=== PATIENT | male | born 1950 | race Caucasian/White ===

== ENCOUNTER 2025-06-17 08:14 | Day surgery (SDC) | payer MEDICARE, BC ==
[2025-06-17] VITALS (10 sets, daily range): BP systolic 135–155; BP diastolic 60–94; PULSE 58–71; RESP 16; TEMP 97.8; O2SAT 97–99
[~2025-06-17] VITALS: Ht 177.8 cm; Wt 81.1 kg
--- NOTE | 2025-06-17 08:54 | ELECTROCARDIOGRAPH REPORT ---
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 Julio Benito Measurements Intervals [place] Rate: 75 P: 48 NE: 150 QRS: 41 QRSD: 81 T: 56 QT: 376 QTc: 420 Interpretive Statements Sinus rhythm Minimal ST elevation, anterior and inferioir leads Electronically Signed On 06-17-2025 12:41:[address] Julio Benito Please click the below link to view image of tracing.
[2025-06-17] MEDS ORDERED: ASPI-1265 PO (09:01)
[2025-06-17] MEDS ORDERED: RAMI2.5C56 PO (09:01)
[2025-06-17] MEDS ORDERED: DAPA10TA PO (09:01)
[2025-06-17] MEDS ORDERED: METF-900 PO (09:01)
[2025-06-17] MEDS ORDERED: ROSU10TA98 PO (09:01)
[2025-06-17] MEDS ORDERED: PIOG30TA71 PO (09:01)
[2025-06-17] MEDS ORDERED: LIDOcaine 1% (10mg/ml) 2ml vial ONE (09:14)
[2025-06-17] MEDS ORDERED: verapamil 2.5 mg/ml inj IV ONE (09:14)
[2025-06-17] MEDS ORDERED: midazolam 1 mg/ML 2ml injection ONE ×4 (09:15→10:58)
[2025-06-17] MEDS ORDERED: iohexol 350 MG/ML 50ML vial IV ONE ×2 (09:15→11:11)
[2025-06-17] MEDS ORDERED: heparin 1,000unit/ml 10ml vial 0 ML ONE (09:15)
[2025-06-17] MEDS ORDERED: fentaNYL/PF 50MCG/1 ML 2ML syringe ONE (09:15)
[2025-06-17] MEDS ORDERED: nitroGLYCERIN 500mcg/5mL D5W 5 ML IV ONE ×3 (09:16→11:28)
[2025-06-17 09:18] LABS: MEAN PLATELET VOLUME 8.5 FL (7.4-10.4); RED CELL DISTRIBUTION WIDTH 15.1 % (11.5-14.5)
[2025-06-17 09:25] LABS: CREATININE 1.24 MG/DL (0.60-1.10); TOTAL CARBON DIOXIDE 25.7 MMOL/L (24-32); eCRCL 52 ML/MIN; eGFR 57 ML/MIN
[2025-06-17 09:28] LABS: INR 1.0 INR
[2025-06-17] MEDS: sodium bicarbonate 1meq/ml syr 150 ML in dextrose 5%-water 1,000 ML IV ONE (10:01)
[2025-06-17] MEDS ORDERED: heparin 1,000unit/ml 10ml vial 10 ML ONE (10:40)
[2025-06-17] MEDS ORDERED: phenylephrine 10mg/ml inj. ONE (11:21)
[2025-06-17] MEDS ORDERED: ondansetron/PF 4mg/2ml inj IV PRN (12:15)
[2025-06-17] MEDS ORDERED: HYDROcodone/acetaminophen 5mg/325mg tablet PO PRN (12:15)
[2025-06-17] MEDS ORDERED: HYDROcodone/acetaminophen 10/325mg tab PO PRN (12:15)
--- NOTE | 2025-06-17 12:30 | CARDIOLOGY REPORT ---
DATE OF SERVICE: 06/17/2025 DICTATING PHYSICIAN: NEYMAR PILLAI DO CARDIAC CATHETERIZATION REPORT REFERRING PHYSICIAN: Kassandra Covarrubias MD. CLINICAL HISTORY: This 75-year-old man has been experiencing chest pain compatible with angina pectoris. He also has mild to moderate aortic stenosis. PROCEDURES PERFORMED: * Left heart catheterization. * Left ventriculography. * Selective coronary arteriography. * PTCA/stent placement (right coronary artery, PTCA/stent placement, circumflex marginal branch). * 75 minutes of conscious sedation supervision. DESCRIPTION OF PROCEDURE: The patient was sedated with fentanyl and Versed. He was then prepared and draped in the usual manner. The right radial area was infiltrated with 1% lidocaine. Using a micropuncture set and a Seldinger technique, a 6-[place] sheath was placed in the radial artery. 5000 units of heparin were given. A standard cocktail of 200 mcg of nitroglycerin and 2.5 mg of verapamil were directly injected into the right coronary. Left heart catheterization and left ventriculography were performed using a 6-[place] pigtail catheter. Coronary arteriography was performed using a 6-[place] Kimny catheter for both left and right coronary arteries. Next is PTCA/stent placement. The patient was given an additional 5000 units of heparin. The right coronary was engaged with a 6-[place] 0.75 side-hole AL catheter. A Choice PT2 guidewire was passed down through multiple high-grade stenoses in the proximal and distal main stem right coronary. The tip was positioned distally. All 3 of these areas were dilated with a 3 mm balloon. Residual stenoses were covered with a 3.5 x 26 mm Zavalla [place] drug-eluting stent. Then a 3.5 x 22 mm Zavalla [place] drug-eluting stent and finally a 3.5 x 18 mm Zavalla [place] drug-eluting stent. After all 3 were fully expanded and deployed, final arteriography was performed. The left main coronary was engaged with a 6-[place] #4 XBC guiding catheter. The patient had a left coronary spasm, but it was relieved with multiple intracoronary injections of nitroglycerin. Next, the Choice PT2 guidewire was passed across a 90% stenosis in a large second diagonal. The lesion was dilated with a 3 x 15 mm balloon and the residual stenosis was covered with a 3 x 18 mm Zavalla [place] drug-eluting stent. The final arteriography of the left coronary was performed. The catheters were withdrawn. The radial sheath was removed and Vas band was applied. RESULTS: HEMODYNAMIC DATA: The left ventricular end-diastolic pressure was 15 mmHg. There was only a 7 mm gradient across the aortic valve. The valve was easily crossed with a pigtail catheter, making it unlikely to be severely stenotic as suggested by the gradient as well. LEFT VENTRICULOGRAM: The left ventriculogram demonstrated hypercontractility. Post PVC, the ejection fraction was about 80%. CORONARY ARTERIOGRAPHY: The coronary arteriograms were technically satisfactory. The patient had a right dominant system. RIGHT CORONARY ARTERY: The right coronary artery was a large main stem vessel. There was a large distally bifurcated posterior descending branch, 2 very small caliber first and second posterolateral branches and a long large third posterolateral. The proximal right coronary was narrowed by about 90%. There were at least two 70%-90% areas of narrowing in the more distal vessel on the acute marginal bend. LEFT MAIN CORONARY ARTERY: The left main was a large unobstructed vessel bifurcating into left anterior descending and circumflex coronary arteries. LEFT MAIN CORONARY ARTERY: The left main was a large unobstructed vessel bifurcating into left anterior descending and circumflex coronary arteries. LEFT ANTERIOR DESCENDING CORONARY ARTERY: The LAD was a large transapical vessel. There was a large proximal first diagonal that was bifurcated. The proximal left main contained about a 50% area of narrowing. Further downstream, there was about a 40% narrowing in the mid LAD, but there were no high-grade stenoses. PTCA/STENT PLACEMENT: After balloon angioplasty and stenting of the distal mid and more proximal stenoses in the right coronary, there were no significant residual stenoses and brisk unrestricted flow distally. Following balloon angioplasty and stenting of the principal obtuse marginal branch, there was no significant residual stenosis and brisk runoff distally. CONCLUSIONS: 1. No evidence for significant aortic stenosis. There was only a 7 mm gradient across the valve that was easily crossed with a conventional pigtail catheter. 2. Obstructive coronary artery disease as follows: A. 90% proximal with two at least 70%-90% stenoses more distally overlying the acute marginal bend in the main stem coronary. B. 90% stenosis of the principal circumflex marginal branch. C. 50% proximal and 40% mid narrowings in the main stem LAD. 3. Successful multi-balloon and stents placement in the right coronary. Following placement of these devices, there was no significant stenosis in any place. BRIDGETTE flow before and after the intervention was graded as 3. 4. Successful PTCA/stent placement directed at the principle circumflex marginal coronary. Following balloon angioplasty and stenting of a 90% stenosis, there was no significant residual stenosis and BRIDGETTE flow was graded as 3 before and after the intervention number. 5. Hyperdynamic left ventricular ejection fraction with an LVEF of about 90%. RECOMMENDATIONS: Ongoing medical therapy. NEYMAR PILLAI DO TID: [id number] RECEIPT: [id number] [facility]
[2025-06-17] MEDS ORDERED: TICA90TA2 PO (13:18)
== END 2025-06-17 16:05 | disposition home or self-care (01) ==
LOC: SSTAY O 08:14
PROVIDERS: ATTEND Internal Medicine Cardiovascular Disease
DX: R94.39 Abnormal result of other cardiovascular function study (principal); I35.0 Nonrheumatic aortic (valve) stenosis; I25.10 Atherosclerotic heart disease of native coronary artery without angina pectoris; I10 Essential (primary) hypertension; E11.9 Type 2 diabetes mellitus without complications; E78.5 Hyperlipidemia, unspecified; Z79.82 Long term (current) use of aspirin; Z79.84 Long term (current) use of oral hypoglycemic drugs; Z79.899 Other long term (current) drug therapy
CPT/HCPCS: 36415; 80048; 82948; 83735; 85025; 85610; 93005; 93458; 99152; 99153; A6258; A6402; C1725; C1751; C1769; C1874; C1894; C9600; J1171; J1644; J2003; J2250; J2371; J3010; J3490; J7030; J7070; Q0163; Q9967; Z7610